=== PATIENT | female | born 1995 | race Caucasian/White ===

== ENCOUNTER 2020-01-14 18:33 | Emergency (ER) | payer MEDICAID ==
[~2020-01-14] VITALS: Ht 172.7 cm; Wt 70.8 kg
[2020-01-14 19:03] VITALS: Ht 172.7 cm; Wt 70.8 kg
[2020-01-14 19:57] VITALS: BP 149/75
== END 2020-01-14 19:57 | disposition home or self-care (01) ==
LOC: ED 18:33
DX: S63.631A Sprain of interphalangeal joint of left index finger, initial encounter (principal); W10.8XXA Fall (on) (from) other stairs and steps, initial encounter; Y93.89 Activity, other specified; Y92.89 Other specified places as the place of occurrence of the external cause; Y99.8 Other external cause status
CPT/HCPCS: A4570

== ENCOUNTER 2020-08-18 19:29 | Emergency (ER) | payer MEDICAID ==
[~2020-08-18] VITALS: Ht 177.8 cm; Wt 112.9 kg
[2020-08-18 19:33] VITALS: Ht 177.8 cm; Wt 112.9 kg
[2020-08-18 21:01] LABS: BASOPHIL % 0.6 % (0-2); PLATELET COUNT 313 x10^3mcL (130-400); RED CELL DISTRIBUTION WIDTH 13.5 % (11.5-14.5)
[2020-08-18 21:42] VITALS: BP 127/63
== END 2020-08-18 21:42 | disposition home or self-care (01) ==
LOC: ED 19:29
PROVIDERS: Emergency Medicine
DX: O20.0 Threatened abortion (principal)
CPT/HCPCS: Q0092

== ENCOUNTER 2020-08-19 19:39 | Emergency (ER) | payer MEDICAID ==
[~2020-08-19] VITALS: Ht 177.8 cm; Wt 110.2 kg
[2020-08-19 19:45] VITALS: Ht 177.8 cm; Wt 110.2 kg
[2020-08-19 21:37] LABS: BASOPHIL % 0.7 % (0-2); PLATELET COUNT 307 x10^3mcL (130-400); RED CELL DISTRIBUTION WIDTH 13.5 % (11.5-14.5)
[2020-08-19 23:26] VITALS: BP 118/54
== END 2020-08-19 23:26 | disposition home or self-care (01) ==
LOC: ED 19:39
DX: O03.80 Unspecified complication following complete or unspecified spontaneous abortion (principal)